=== PATIENT | male | born 1955 | race Caucasian/White ===

== ENCOUNTER → 2017-08-30 | Outpatient (CLI) | payer OTHER ==
--- NOTE | 2017-08-31 14:39 | XCELERA REPORT ---
[address] [address] Transthoracic Echocardiogram Report Name: KAYLAJACY DE SANTIAGO Age: 61 yrs Gender: Male : 1955 Patient Status: Outpatient Patient Location: Study Date: 08/30/2017 02:10 PM Height: 69 in Weight: 180 lb BSA: 2.0 m2 Procedure: A two-dimensional transthoracic echocardiogram with color flow and Doppler was performed. Study Quality: Fair. Reason For Study: DYSPNEA History: DYSPNEA. Ordering Physician: JACY LUGO Performed By: Dalia Ferraro Interpretation Summary The left ventricle is normal in size. There is normal left ventricular wall thickness. LV EF is 65% Left ventricular systolic function is normal. Doppler measurements suggest normal left ventricular diastolic function The left ventricular wall motion is normal. There is no thrombus. There is no ventricular septal defect visualized. The right ventricle is normal in size and function. The right atrium is normal. The left atrial size is normal. The interatrial septum is intact with no evidence for an atrial septal defect. There is no evidence of mitral valve prolapse. There is no vegetation seen on the mitral valve. There is no mitral valve stenosis. There is no mitral regurgitation noted. There is no aortic valve stenosis There is no LVOT obstruction. No aortic regurgitation is present. There is no tricuspid stenosis. No tricuspid regurgitation. Cannot calculate RVSP due to insufficint TR jet. There is no pulmonic valvular stenosis. There is no pulmonic valvular regurgitation. The aortic root is normal size. There is no pericardial effusion. MMode/2D Measurements & Calculations RVDd: 2.4 cm LVIDd: 5.3 cm FS: 39.9 % Ao root diam: 3.7 cm IVSd: 0.92 cm LVIDs: 3.2 cm EDV(Teich): 133.7 ml LVPWd: 0.94 cm ESV(Teich): 40.0 ml Ao root area: 10.8 cm2 EF(Teich): 70.1 % LA dimension: 3.4 cm LVOT diam: 2.2 cm LVOT area: 3.8 cm2 Doppler Measurements & Calculations MV E max malu: MV P1/2t max malu: Ao V2 max: LV V1 max P.7 cm/sec 73.7 cm/sec 140.4 cm/sec 5.3 mmHg MV A max malu: MV P1/2t: 67.1 msec Ao max PG: LV V1 max: 77.9 cm/sec MVA(P1/2t): 3.3 cm2 7.9 mmHg 114.9 cm/sec MV E/A: 0.95 MV dec slope: SOPHIE(V,D): 3.1 cm2 321.7 cm/sec2 PA V2 max: 81.4 cm/sec PA max P.7 mmHg Left Ventricle The left ventricle is normal in size. There is normal left ventricular wall thickness. LV EF is 65%. Left ventricular systolic function is normal. Doppler measurements suggest normal left ventricular diastolic function. The left ventricular wall motion is normal. There is no thrombus. There is no ventricular septal defect visualized. Right Ventricle The right ventricle is normal in size and function. Atria The right atrium is normal. The left atrial size is normal. The interatrial septum is intact with no evidence for an atrial septal defect. Mitral Valve There is no evidence of mitral valve prolapse. There is no vegetation seen on the mitral valve. There is no mitral valve stenosis. There is no mitral regurgitation noted. Aortic Valve There is no aortic valvular vegetation. There is no aortic valve stenosis. There is no LVOT obstruction. No aortic regurgitation is present. Tricuspid Valve There is no tricuspid stenosis. No tricuspid regurgitation. Cannot calculate RVSP due to insufficint TR jet. Pulmonic Valve There is no pulmonic valvular stenosis. There is no pulmonic valvular regurgitation. Great Vessels The aortic root is normal size. Effusions There is no pericardial effusion. : JACY LUGO > Nicole Dorsey
== END ==
LOC: SP 13:49
PROVIDERS: ATTEND Student in an Organized Health Care Education/Training Program
DX: R06.00 Dyspnea, unspecified (principal)
CPT/HCPCS: 93306